=== PATIENT | female | born 1975 | race Caucasian/White ===

== ENCOUNTER 2018-10-18 19:47 | Emergency (ER) | payer OTHER ==
[2018-10-18] MEDS ORDERED: ACETAMINOPHEN 1000 MG/100 ML VIAL (NON FORMULARY) IVPB ONE (19:59)
[2018-10-18 20:02] VITALS: BP 120/88; PULSE 94; TEMP 99.3; BMI 31.7
[2018-10-18] MEDS ORDERED: METHOCARBAMOL 500 MG TABLET ONE (20:06)
--- NOTE | 2018-10-18 20:51 | PDOC ---
History of Present Illness - General Stated Complaint: FALL Time Seen by Provider: 10/18/18 19:58 - History of Present Illness Initial Comments: Marge Renee is a 43yo woman BIBA following an unwitnessed fall in a hotel bathroom. She states that she has "terrible neck pain" and multiple "bumps on the head" but adamantly refuses to wear a c-collar. She refuses to answer questions and continues screaming. She states that she was discharged from a hospital in [place] yesterday, and she was told she had pseudo-seizures but "no one did anything." She states that they "refused to do an MRI or EEG." She reports a history of hypothyroidism, PVD w/ chronic RLE ulcers, on methadone , chronic pain from herniated discs. She repeatedly demands pain medication, stating that she takes "oxycodone 30mg for breakthrough pain" in addition to a fentanyl patch. Past History - Past Medical History Allergies/Adverse Reactions: Allergies Allergy/AdvReac Type Severity Reaction Status Date / Time Fish Containing Products Allergy Severe Difficulty Verified 10/18/18 20:03 Breathing Iodinated Contrast- Oral and Allergy Severe Difficulty Verified 10/18/18 20:03 IV Dye Breathing [Iodinated Contrast Media - IV Dye] latex Allergy Severe Hives Verified 10/18/18 20:03 NSAIDS (Non-Steroidal Allergy Severe Hives Verified 10/18/18 20:03 Anti-Inflamma Home Medications: Ambulatory Orders Albuterol Sulfate Inhaler - [Ventolin HFA Inhaler -] 2 inh PO Q4H PRN 09/20/14 hydrOXYzine HCL [Atarax -] 50 mg PO Q6H PRN 09/20/14 Levothyroxine [Synthroid -] 150 mcg PO DAILY #30 tablet 09/25/14 Anemia: Yes Asthma: Yes (Pt is on MDI.) Cardiac Disorders: No CVA: No COPD: No Diabetes: No GI Disorders: Yes (GERD-NEXIUM) Disorders: No HTN: No Hypercholesterolemia: No Kidney Stones: No Seizures: No Thyroid Disease: Yes (HYPOTHYROIDISM--SYNTHROID 150 MCG DAILY) - Reproductive History PID: No - Suicide/Smoking/Psychosocial Hx Smoking History: Unknown if ever smoked Have you smoked in the past 12 months: Yes Number of Cigarettes Smoked Daily: 10 'Breaking Loose' booklet given: 09/20/14 Hx Alcohol Use: Yes ([employer]) Drug/Substance Use Hx: Yes (HEROIN) Substance Use Type: Alcohol, Heroin Hx Substance Use Treatment: Yes ([facility]) Review of Systems - Review of Systems Comments:: Could not obtain *Physical Exam - Vital Signs Last Vital Signs Temp Pulse Resp BP Pulse Ox 99.3 F 94 H 18 120/88 99 10/18/18 20:01 10/18/18 20:01 10/18/18 20:01 10/18/18 20:01 10/18/18 20:01 - Physical Exam Comments: General: Screaming, no acute distress HEENT: MMM. Hoarse voice Cards: Could not obtain Pulm: Could not obtain Abd: Could not obtain Ext: Moves all extremities. Distal RLE with large ulcerated wound, dressing soaked in dark yellow fluid. Kerlix and abd's removed, dressed w/ mesh and ointment. Surrounding erythema. No apparent TTP. Vasc: Extremities WWP. Skin: Normal color, no rashes or lesions Neuro: A&Ox3, CN grossly intact, normal speech, motor/sensory grossly intact and symmetric Psych: Agitated, screaming, belligerent ED Treatment Course - LABORATORY CBC & Chemistry Diagram: 10/18/18 20:00 10/18/18 20:00 - RADIOLOGY Radiology Studies Ordered: Category Date Time Status CERVICAL SPINE CT W/O CONTR [CT] Stat CT Scan 10/18/18 19:[address] WITHOUT CONTRAST [CT] Stat CT Scan 10/18/18 19:59 Ordered CHEST X-RAY PORTABLE* [RAD] Stat Radiology 10/18/18 19:58 Ordered - Medications Given in the ED: ED Medications Discontinued Medications Generic Name Dose Route Start Last Admin Trade Name Freq PRN Reason Stop Dose Admin Acetaminophen 1,000 mg 10/18/18 19:59 10/18/18 20:41 Ofirmev Injection - IVPB 10/18/18 20:00 Not Given ONCE ONE Medical Decision Making - Medical Decision Making 10/18/18 20:41 Marge Renee is a 43yo woman BIBA following an unwitnessed fall in a hotel bathroom, 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 " - Demanding pain medication, fentanyl patch noted. Pt states was placed today - IV acetaminophen ordered, robaxin given. Pt refused acetaminophen. - Continues to refuse c-collar after the reason for the c-collar was explained - Noted to have hematoma on posterior head. Given report of multiple falls, unclear when injury occurred. Possible head trauma due to fall today, possible drug-seeking behavior. Unclear whether falls were mechanical, sycnope, seizure/ pseudo-seizure - CT head, CT c-spine, CBC, CMP, mag, phos, ASA level, acetaminophen level, serum preg, UA, urine tox, alcohol level, EKG, 10/18/18 20:51 - Several attempts made by nurse Soraya, US guided by myself and Dr Mendez. Labs drawn. - Patient states that the staff is "refusing to help her" and she is going to leave. Continues to scream, swearing at staff and other patients, demanding that someone call her a cab. Refused to wait for AMA paperwork, becoming increasingly agitated and belligerent, continuing to scream and swear at staff. Hospital security called. Pt escorted out of the ED. Pt seen with Dr Garay. Laxmi Wilson PGY1 *DC/Admit/Observation/Transfer Diagnosis at time of Disposition: Fall - Discharge Dispostion Disposition: ELOPED Condition at time of disposition: Unchanged/Unknown - Referrals - Patient Instructions - Post Discharge Activity
[2018-10-18] MEDS ORDERED: METHOCARBAMOL 500 MG TABLET PO ONE (21:06)
[2018-10-18 21:43] LABS: ALBUMIN 3.4 g/dl (3.4-5.0); ALK PHOS 108 U/L (45-117); ANION GAP 9 MMOL/L (8-16); BILIRUBIN,TOTAL 0.4 mg/dL (0.2-1); BLOOD UREA NITROGEN 22 mg/dL (7-18); CALCIUM 8.6 mg/dL (8.5-10.1); CHLORIDE 104 mmol/L (98-107); CO2 23 mmol/L (21-32); CREATININE 0.8 mg/dL (0.55-1.3); GLUCOSE,RANDOM 94 mg/dL (74-106); MAGNESIUM 2.5 mg/dL (1.8-2.4); PHOSPHOROUS 4.2 mg/dL (2.5-4.9); POTASSIUM 4.5 mmol/L (3.5-5.1); SGOT/AST 47 U/L (15-37); SGPT/ALT 26 U/L (13-61); SODIUM 136 mmol/L (136-145)
--- NOTE | 2018-10-19 00:40 | PDOC ---
Documentation entered by Maximino Paris SCRIBE, acting as scribe for Colleen Garay MD. Colleen Garay MD: This documentation has been prepared by the lisaibe, Maximino Paris SCRIBE, under my direction and personally reviewed by me in its entirety. I confirm that the documentation accurately reflects all work, treatment, procedures, and medical decision making performed by me. Attending Attestation - Resident Resident Name: SteveLaxmi - ED Attending Attestation I have performed the following: I have examined & evaluated the patient, The case was reviewed & discussed with the resident, I agree w/resident's findings & plan - HPI HPI: 10/18/18 21:05 The patient is a 43 year old female with a significant past medical history of opioid dependent who presents to the emergency department with neck pain s/p syncopal episode earlier today. The patient states that she was recently seen at [facility] and discharged 3 days ago for similar episodes. She states that she had a syncopal episode today and subsequently has been experiencing neck pain. It is noted that the patient refused to wear the C- collar provided for her . The patient administered her own opioid in the ED for her pain and accepted tylenol and muscle relaxant from the ED. The patient is otherwise compliant with workup. - Physicial Exam PE: 10/18/18 21:05 GENERAL:(+)belligerent, yelling and screaming in the ED. Awake, alert, and fully oriented, in no acute distress HEAD: No signs of trauma EYES: PERRLA, EOMI, sclera anicteric, conjunctiva clear ENT: Auricles normal inspection, hearing grossly normal, nares patent, oropharynx clear without exudates. Moist mucosa NECK: Normal ROM, supple, no lymphadenopathy, JVD, or masses LUNGS: Breath sounds equal, clear to auscultation bilaterally. No wheezes, and no crackles HEART: Regular rate and rhythm, normal S1 and S2, no murmurs, rubs or gallops ABDOMEN: Soft, nontender, normoactive bowel sounds. No guarding, no rebound. No masses EXTREMITIES: Normal range of motion, no edema. No clubbing or cyanosis. No cords, erythema, or tenderness NEUROLOGICAL: Cranial nerves II through XII grossly intact. Normal speech, normal gait SKIN: Warm, Dry, normal turgor, no rashes or lesions noted. - Medical Decision Making 10/19/18 00:39 Pt eloped from the ER, as we would not give her narcotics up front. We did allow her to take her own narcotics, which she did prior to eloping.
== END 2018-10-18 20:55 | disposition left against medical advice (07) ==
LOC: JER 19:47
DX: M54.2 Cervicalgia (principal); R55 Syncope and collapse; W18.39XA Other fall on same level, initial encounter; Z91.81 History of falling; Y93.89 Activity, other specified; Y92.59 Other trade areas as the place of occurrence of the external cause; Y99.8 Other external cause status; L98.491 Non-pressure chronic ulcer of skin of other sites limited to breakdown of skin; E03.9 Hypothyroidism, unspecified; F11.20 Opioid dependence, uncomplicated
CPT/HCPCS: 36415; 80053; 82550; 82553; 83735; 84100; 84484; 84703; 99281-25